=== PATIENT | male | born 1950 | race African-American/Black ===

== ENCOUNTER 2018-07-08 23:13 | Emergency (ER) | payer OTHER ==
[~2018-07-08] VITALS: Ht 167.6 cm; Wt 73.9 kg
[~2018-07-08 23:13] MED LIST: PERCOCET 5-3251 EACH PO
[2018-07-08] MEDS ORDERED: ATORVASTATIN CA40 MG PO (23:22)
[2018-07-08] MEDS ORDERED: LISINOPRIL10 MG PO (23:22)
[2018-07-08 23:42] LABS: ABSOLUTE NEUTROPHILS 1.8 thou/uL (1.4-8.2); EOSINOPHILS 2.1 % (0.0-3.0); HEMATOCRIT 39.8 % (42.0-52.0); HEMOGLOBIN 13.3 gm/dL (14.0-18.0); LYMPHOCYTES 38.8 % (24.0-44.0); MCH 30.2 pg (26.0-34.0); MCHC 33.3 g/dL (28.0-37.0); MCV 90.9 fL (80.0-100.0); MONOCYTES 10.8 % (1.0-8.0); PLATELET COUNT 247 thou/uL (150-400); POLYS 47.3 % (36.0-66.0); RBC 4.38 mil/uL (4.50-6.00); RDW 14.7 % (10.5-14.5); WBC 3.7 thou/uL (4.0-11.0)
[2018-07-08 23:48] LABS: ANION GAP 9 mmol/L (7-16); BUN 20 mg/dL (7-18); CHLORIDE 102 mmol/L (98-107); CO2 30 mmol/L (21-32); CREATININE 1.2 mg/dL (0.7-1.3); GLUCOSE 120 mg/dL (74-106); POTASSIUM 3.6 mmol/L (3.5-5.1); SODIUM 141 mmol/L (136-145)
[2018-07-08 23:57] LABS: TROPONIN-I <0.06 ng/mL (<0.06)
[2018-07-09 01:28] VITALS: BP 127/66
--- NOTE | 2018-07-09 09:21 | EKG ---
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: GUERRERO : 1950 Requested By: Aleena Farley Order Number: [id number] MD: Clyde Gallagher Measurements Intervals [place] Rate: 64 P: 45 [place]: 178 QRS: 34 QRSD: 94 T: 27 QT: 406 QTc: 419 Interpretive Statements Sinus rhythm Normal tracing Compared to ECG 04/24/2007 02:11:26 Left ventricular hypertrophy no longer present Electronically Signed On 07-09-2018 9:21:06 CDT by Clyde Gallagher [email or web address] ��������������������������������������������� <ELECTRONICALLY SIGNED> ���������������������������������������� By: Clyde Gallagher MD, [facility] ��������������������������������������������� 07/09/18 0921 2326 2326 Clyde Gallagher MD, FACC /EPI
== END 2018-07-09 01:28 | disposition home or self-care (01) ==
LOC: ER 23:13
PROVIDERS: Student in an Organized Health Care Education/Training Program
DX: E86.0 Dehydration (principal); R51 Headache; I10 Essential (primary) hypertension

== ENCOUNTER 2020-09-10 15:48 | Emergency (ER) | payer OTHER ==
[~2020-09-10] VITALS: Ht 167.6 cm; Wt 75.3 kg
[~2020-09-10 15:48] MED LIST changes: +ATORVASTATIN CA40 MG PO; +LISINOPRIL10 MG PO
[2020-09-10] MEDS ORDERED: TIZANIDINE HCL4 M2 PO (17:17)
[2020-09-10] MEDS ORDERED: MOBIC7.5 MG PO (17:17)
[2020-09-10 18:00] LABS: URINE BILIRUBIN NEGATIVE (Negative); URINE BLOOD 1+ (Negative); URINE CLARITY CLEAR; URINE COLOR YELLOW; URINE GLUCOSE-RANDOM* NEGATIVE (Negative); URINE KETONES TRACE (Negative); URINE LEUKOCYTES-REFLEX NEGATIVE (Negative); URINE NITRITE-REFLEX NEGATIVE (Negative); URINE PROTEIN (DIPSTICK) NEGATIVE (Negative); URINE UROBILINOGEN 0.2 E.U./dl (0.2-1.0)
[2020-09-10 18:03] LABS: HEMATOCRIT 40.2 % (42.0-52.0); HEMOGLOBIN 13.2 gm/dL (14.0-18.0); MCH 29.9 pg (26.0-34.0); MCHC 32.8 g/dL (28.0-37.0); MCV 91.2 fL (80.0-100.0); RBC 4.41 mil/uL (4.50-6.00); RDW 15.5 % (10.5-14.5); WBC 3.3 thou/uL (4.0-11.0)
[2020-09-10 18:08] LABS: CALCIUM 9.1 mg/dL (8.5-10.1); CREATININE 1.4 mg/dL (0.7-1.3); POTASSIUM 4.3 mmol/L (3.5-5.1)
[2020-09-10 18:13] LABS: BACTERIA-REFLEX 1-9 Few /HPF (None Seen); CASTS None Seen /LPF (None Seen); CRYSTALS None Seen /LPF (None Seen); SQUAMOUS None Seen /LPF (0-3); URINE RBC 3-10 Few /HPF (NONE SEEN); URINE WBC-REFLEX 0-5 Rare /HPF (0-5)
[2020-09-10 18:14] LABS: ALBUMIN 3.9 g/dL (3.4-5.0); TOTAL BILIRUBIN 0.6 mg/dL (0.2-1.0); TOTAL PROTEIN 7.2 g/dL (6.4-8.2)
[2020-09-10 20:19] VITALS: BP 165/81
--- NOTE | 2020-09-11 11:04 | EKG ---
[address] [place] [address] ELECTROCARDIOGRAM REPORT Name: IONA RIZZOOMON Toi [facility]: [facility] [id number] Admission: 09/10/20 Attend Phys: Discharge: 09/10/20 Date of : 50 Report #: [id number] [facility] ED Test Date: 2020-09-10 Test Time: 17:37:12 Pat Name: SUZANNE RIZZO Department: Room: Gender: Reticle Printer: Collin MORALES : 1950 Requested By: Purnima Thompson Order Number: [id number] MD: Bony Olmstead Measurements Intervals [place] Rate: 51 P: 24 GA: 184 QRS: 52 QRSD: 96 T: 43 QT: 432 QTc: 398 Interpretive Statements Sinus rhythm Left ventricular hypertrophy Compared to ECG 07/08/2018 23:26:18 Left ventricular hypertrophy now present Electronically Signed On 09-11-2020 11:04:21 CDT by Bony Olmstead [email or web address] <ELECTRONICALLY SIGNED> By: Bony Olmstead MD 09/11/20 1104 1737 1737 Bony Olmstead MD /EPI
== END 2020-09-10 20:20 | disposition home or self-care (01) ==
LOC: ER 15:48
PROVIDERS: Nurse Practitioner Family
DX: I10 Essential (primary) hypertension (principal); R55 Syncope and collapse

== ENCOUNTER 2021-04-30 09:17 | Emergency (ER) | payer OTHER ==
[~2021-04-30] VITALS: Ht 167.6 cm; Wt 77.1 kg
[~2021-04-30 09:17] MED LIST changes: +MOBIC7.5 MG PO; +TIZANIDINE HCL4 M2 PO
[2021-04-30] MEDS ORDERED: HYDROCHLOROTHIA25 M1 PO (09:22)
[2021-04-30] MEDS ORDERED: OLMESARTAN MEDO20 MG PO (09:23)
[2021-04-30 10:55] LABS: ABSOLUTE NEUTROPHILS 1.3 thou/uL (1.4-8.2); BASOPHILS 1.5 % (0.0-2.0); EOSINOPHILS 3.7 % (0.0-3.0); HEMATOCRIT 42.9 % (42.0-52.0); LYMPHOCYTES 40.5 % (24.0-44.0); MCH 29.7 pg (26.0-34.0); MCHC 32.6 g/dL (28.0-37.0); MCV 91.2 fL (80.0-100.0); MONOCYTES 12.7 % (1.0-8.0); PLATELET COUNT 273 thou/uL (150-400); POLYS 41.6 % (36.0-66.0); RDW 15.3 % (10.5-14.5); WBC 3.1 thou/uL (4.0-11.0)
[2021-04-30 11:02] LABS: CREATININE 1.3 mg/dL (0.7-1.3)
[2021-04-30 11:09] LABS: POTASSIUM 3.8 mmol/L (3.5-5.1)
[2021-04-30 11:12] LABS: ALBUMIN 4.1 g/dL (3.4-5.0); TOTAL BILIRUBIN 0.7 mg/dL (0.2-1.0); TOTAL PROTEIN 7.7 g/dL (6.4-8.2)
[2021-04-30 14:11] VITALS: BP 117/67
[2021-04-30] MEDS ORDERED: NAPROSYN500 MG PO (14:13)
[2021-04-30] MEDS ORDERED: FLEXERIL PO (14:13)
--- NOTE | 2021-05-02 08:29 | EKG ---
[address] [place] [address] ELECTROCARDIOGRAM REPORT Name: RIZZOSUZANNE [facility] [id number] Admission: 04/30/21 Attend Phys: Discharge: 04/30/21 Date of : 50 Report #: [id number] [facility] ED Test Date: 2021-04-30 Test Time: 10:40:11 Pat Name: SUZANNE RIZZO Department: Room: Gender: Beader: TJ : 1950 Requested By: Alcides Scrhader Order Number: [id number] MD: Eduardo Goldberg Measurements Intervals [place] Rate: 48 P: 8 NV: 197 QRS: 40 QRSD: 102 T: 26 QT: 431 QTc: 385 Interpretive Statements Sinus bradycardia Compared to ECG 09/10/2020 17:37:12 Sinus rhythm no longer present Left ventricular hypertrophy no longer present Electronically Signed On 05-02-2021 8:29:00 [employer] by Eduardo Goldberg [email or web address] <ELECTRONICALLY SIGNED> By: Eduardo Goldberg MD 05/02/21 0829 1040 1040 Eduardo Goldberg MD /RADHA
== END 2021-04-30 14:22 | disposition home or self-care (01) ==
LOC: ER 09:17
PROVIDERS: Emergency Medicine
DX: R07.89 Other chest pain (principal); R06.02 Shortness of breath; I10 Essential (primary) hypertension; R10.811 Right upper quadrant abdominal tenderness